=== PATIENT | male | born 1995 | race Caucasian/White ===

== ENCOUNTER 2018-10-09 22:59 | Emergency (ER) | payer MEDICAID ==
[~2018-10-09] VITALS: Ht 172.7 cm; Wt 75.0 kg
[2018-10-10] MEDS ORDERED: HYDROCODONE/ACETAMINOPHEN 5-325 MG TABLET PO ONE (00:45)
[2018-10-10 01:10] VITALS: BP 119/73
== END 2018-10-10 01:20 | disposition home or self-care (01) ==
LOC: EDUNIT# 22:59 → EMS 23:03
DX: S82.141A Displaced bicondylar fracture of right tibia, initial encounter for closed fracture (principal); S82.111A Displaced fracture of right tibial spine, initial encounter for closed fracture; M25.461 Effusion, right knee; F12.90 Cannabis use, unspecified, uncomplicated; W51.XXXA Accidental striking against or bumped into by another person, initial encounter; Y93.66 Activity, soccer; Y92.89 Other specified places as the place of occurrence of the external cause; Y99.8 Other external cause status
CPT/HCPCS: 29505